=== PATIENT | male | born 1980 | race African-American/Black ===

== ENCOUNTER 2024-04-03 00:08 | Emergency (ER) | payer OTHER ==
[2024-04-03 02:07] LABS: #Basophils Less than 0.03 10x3/uL (0.0-0.2); %Basophils 0.1 % (0.0-1.0); %Eosinophils 2.8 % (0.0-10.0); %Lymphocytes 37.6 % (21.0-51.0); %Monocytes 14.9 % (0.0-10.0); %Neutrophils 44.5 % (42.0-75.0); Hematocrit 39.4 % (42.0-52.0); Mean Corpuscular HGB CONC 30.5 g/dL (32.0-36.0); Mean Corpuscular Hemoglobin 26.2 pg (27.0-31.0); Mean Platelet Volume 9.5 fL (7.4-10.4); Platelet Count 188 10x3/uL (130-400); RBC Distribution Width 14.2 % (11.5-14.5); Red Blood Cell (RBC) Count 4.58 mill/uL (4.70-6.10)
[2024-04-03 02:29] LABS: ALT (SGPT) 40 U/L (8-55); AST (SGOT) 28 U/L (5-34); Albumin 3.6 g/dL (3.5-5.0); Alkaline Phosphatase 50 U/L (40-110); Anion Gap 12 mmol/L (10-20); BUN (Urea Nitrogen) 18 mg/dL (8.9-20.6); Bilirubin, Total 0.7 mg/dL (0.2-1.2); Calc. Creatinine Clearance 0 mL/min (70-130); Calcium 9.4 mg/dL (7.8-10.44); Carbon Dioxide 24 mmol/L (22-29); Chloride 109 mmol/L (98-107); Estimated GFR 108; Glucose 100 mg/dL (70-105); Protein, Total 6.6 g/dL (6.0-8.3); Sodium 141 mmol/L (136-145)
[2024-04-03 02:41] LABS: Troponin I Less than 0.010 ng/mL (< 0.028)
== END 2024-04-03 03:31 ==
LOC: EEVIPCON 00:08 → ERS 00:08
DX: Z02.89 Encounter for other administrative examinations (principal); R00.1 Bradycardia, unspecified; Z55.6 Problems related to health literacy
CPT/HCPCS: 36415; 80053; 84484; 85025; 93005